=== PATIENT | female | born 1970 | race Caucasian/White ===

== ENCOUNTER 2016-09-20 12:26 | Emergency (ER) | payer MEDICAID ==
[~2016-09-20] VITALS: Ht 162.6 cm; Wt 67.0 kg
[~2016-09-20 12:26] MED LIST: ACET325T14 PO; CLIN300C93 PO; DIAZ5TAB4 PO; DOXY-168 PO; GABA-826 PO; HYDR-3240 PO; METH750T2 PO; MORP30TA3 PO; MORP30TA81 PO; OXYC-229 PO; OXYC-302 PO; OXYC1TAB7 PO; PREG100C PO; ZOLP10TA PO
[2016-09-20] MEDS ORDERED: OXYC-229 PO (12:42)
[2016-09-20] MEDS ORDERED: MORP30TA81 PO (12:42)
[2016-09-20] MEDS ORDERED: SODIUM CHLORIDE FLUSH 10ML SYR IVF ONE (13:00)
[2016-09-20] MEDS ORDERED: ONDANSETRON 2MG/ML, 2ML IVPush ONE (13:00)
[2016-09-20] MEDS ORDERED: SODIUM CHLORIDE 0.9% 1,000ML IVBOLUS ONE (13:00)
[2016-09-20] MEDS ORDERED: ONDANSETRON 2MG/ML, 2ML ONE (13:14)
[2016-09-20 13:41] LABS: BLOOD UREA NITROGEN 11 mg/dL (7-18)
[2016-09-20 13:46] LABS: IS PT STATUS REG ER OR PRE ER? YES
[2016-09-20 14:49] VITALS: BP 113/74
== END 2016-09-20 14:52 | disposition home or self-care (01) ==
LOC: ED 14:30
DX: S00.03XA Contusion of scalp, initial encounter (principal); R56.9 Unspecified convulsions; R11.0 Nausea; F17.210 Nicotine dependence, cigarettes, uncomplicated; X58.XXXA Exposure to other specified factors, initial encounter; Y93.89 Activity, other specified; Y92.89 Other specified places as the place of occurrence of the external cause; Y99.8 Other external cause status
CPT/HCPCS: 36415; 70450; 72125; 80048; 82040; 84484; 85025; 93005; 96361; 96374; 99285; J2405; J7030

== ENCOUNTER 2016-11-02 10:00 | Emergency (ER) | payer MEDICAID ==
[~2016-11-02] VITALS: Ht 162.6 cm; Wt 65.7 kg
[~2016-11-02 10:00] MED LIST changes: +CLIN300C8 PO; -CLIN300C93 PO; -DOXY-168 PO; +DOXY100T10 PO; -OXYC-229 PO; +OXYC-307 PO
[2016-11-02 10:15] VITALS: BP 125/84
== END 2016-11-02 12:55 | disposition home or self-care (01) ==
LOC: ED 12:09
DX: Z76.0 Encounter for issue of repeat prescription (principal); M54.2 Cervicalgia; G89.29 Other chronic pain; Z88.0 Allergy status to penicillin
CPT/HCPCS: 99283

== ENCOUNTER 2020-07-17 04:58 | Observation (INO) | payer MEDICAID ==
[~2020-07-17] VITALS: Ht 162.6 cm; Wt 72.4 kg
[~2020-07-17 04:58] MED LIST changes: -CLIN300C8 PO; +CLIN300C9 PO; -DOXY100T10 PO; +DOXY100T23 PO; +HYDR-2214 PO; -HYDR-3240 PO; +METH-640 PO; -METH750T2 PO; +MORP-30 PO; -MORP30TA3 PO; -OXYC-302 PO; -OXYC-307 PO; +OXYC-380 PO; +OXYC1TAB14 PO
--- NOTE | 2020-07-17 05:22 | NUR ---
PT REPORTS WALKING AROUND 4 WEEKS AGO WITH HER MOTHER AND STEPPING OFF A CURB AND FEELING THOUGH EVERYTHING DROPPED, PT REPORTS CLOTS AND 9 LARGE PADS A NIGHT. PT REPORTS YOU CAN SEE HER CERVIX. SINCE THAT EPISODE PT REPORTS PAIN. PT AMBULATED TO AND FROM RESTROOM WITH A SMOOTH AND STEADY GAIT, UA OBTAINED AND SENT TO LAB. PT PLACED ON SPO2/BP MONITORING AT THIS TIME. PROVIDED WARM BLANKETS FOR COMFORT. MIMI SAHM ERP AT BS FOR EVAL AND POC.
[2020-07-17 05:55] LABS: BASOPHILS % (AUTO) 1 % (0-1); EOSINOPHILS % (AUTO) 2 % (1-7); LYMPHOCYTES % (AUTO) 15 % (22-44); MEAN CORPUSCULAR HEMOGLOBIN 29.5 pg (27.0-34.8); MEAN CORPUSCULAR HGB CONC 34.4 g/dL (32.4-35.8); MEAN PLATELET VOLUME 8.4 fL (7.4-10.4); MONOCYTES % (AUTO) 5 % (2-9); NEUTROPHILS % (AUTO) 77 % (42-75); PLATELET COUNT 386 x10^3/uL (130-400); RED BLOOD COUNT 4.94 x10^6/uL (3.82-5.3); RED CELL DISTRIBUTION WIDTH 12.5 % (9.6-15.2)
[2020-07-17 05:59] LABS: MD NO
[2020-07-17 06:05] LABS: ALBUMIN 3.9 g/dL (3.4-5.0); ANION GAP 6 mmol/L (5-15); CHLORIDE 94 mmol/L (98-107)
[2020-07-17 06:10] LABS: MICROSCOPIC INDICATED
[2020-07-17 06:12] LABS: ALANINE AMINOTRANSFERASE 34 U/L (12-78); ALKALINE PHOSPHATASE 246 U/L (45-117); BILIRUBIN,TOTAL 0.3 mg/dL (0.2-1.0); CREATININE 0.98 mg/dL (0.55-1.02); TOTAL PROTEIN 8.4 g/dL (6.4-8.2)
[2020-07-17] MEDS ORDERED: SODIUM CHLORIDE FLUSH 10ML SYR IVF ONE (06:30)
[2020-07-17] MEDS ORDERED: SODIUM CHLORIDE 0.9% 1,000 ML IV ONE ×2 (06:30→07:30)
[2020-07-17] MEDS ORDERED: SODIUM CHLORIDE 0.9% 1,000ML IVBOLUS ONE ×2 (06:30→08:00)
--- NOTE | 2020-07-17 06:36 | NUR ---
PT RESTING ON GURNEY, REPORTING PAIN. ERP AWARE, AWAITING ORDERS. PT GLUCOSE ELEVATED IN THE 500S, 1L NS STARTED. PT RESTING ON GURNEY, NAD, WATCHING TV, NO OTHER CHANGES IN CONDITION, WCTM.
--- NOTE | 2020-07-17 06:41 | NUR ---
BEDSIDE REPORT TO TYREE WHITFIELD, PT CARE TRANSFERRED AT THIS TIME.
[2020-07-17] MEDS ORDERED: INSULIN SINGLE DOSE, ER ONE (06:49)
--- NOTE | 2020-07-17 06:55 | NUR ---
NOC RN VERIFIED WITH ERMD THAT BLOOD CULTURES NOT NEEDED BEFORE STARTING ROCEPHIN ORDER, ERMD CONFIRMED THAT BLOOD CULTURES NOT NEEDED AND TO PROCEED WITH ROCEPHIN. THIS RN STARTED ROCEPHIN. 15 MINUTES LATER ERMD ORDERED BLOOD CULTURES.
--- NOTE | 2020-07-17 06:55 | NUR ---
BEDSIDE REPORT RECEIVED FROM ROSEANN KIMBROUGH FOR TRANSFER OF PATIENT CARE.
[2020-07-17] MEDS ORDERED: MORPHINE SULFATE 4 MG/ML, 1ML ONE (06:57)
[2020-07-17] MEDS ORDERED: MORPHINE SULFATE 4 MG/ML, 1ML IVPush PRN (07:00)
[2020-07-17] MEDS ORDERED: CEFTRIAXONE 1,000 MG in DEXTROSE 5% 50 ML IVPB ONE (07:00)
[2020-07-17] MEDS ORDERED: INSULIN REGULAR 100 UNITS/ML, 3ML VIAL SQ-INSULIN SCH (07:00)
[2020-07-17] MEDS ORDERED: SODIUM CHLORIDE FLUSH 10ML SYR IVF PRN (07:30)
[2020-07-17 07:36] LABS: ACETONE, SERUM Small (20mg/dL) (Negative)
--- NOTE | 2020-07-17 07:44 | NUR ---
REPORT CALLED TO ROSEANN AUGUSTIN FOR TRANSFER OF PATIENT CARE.
[2020-07-17] MEDS ORDERED: SODIUM CHLORIDE 0.9% 1,000 ML IV SCH (08:00)
[2020-07-17] MEDS ORDERED: ACETAMINOPHEN 325 MG TABLET PO PRN (08:00)
[2020-07-17] MEDS ORDERED: ONDANSETRON 2MG/ML, 2ML IVPush PRN (08:00)
[2020-07-17] MEDS ORDERED: OMNIPAQUE 350 MG/ML, 100ML BOTTLE ONE (08:25)
--- NOTE | 2020-07-17 08:31 | NUR ---
PATIENT TRANSFERRED TO FLOOR IN STABLE CONDITION VIA GURNEY WITH QUARANTINE OFFICER, ALL PATIENT BELONGINGS TAKEN TO FLOOR WITH PATIENT.
[2020-07-17 09:10] VITALS: BP 128/74
[2020-07-17] MEDS: LIDODERM 5% PATCH TD PRN ×2 (09:27→09:52)
[2020-07-17] MEDS: INSULIN LISPRO 100 UNITS/ML, PEN SQ-INSULIN SCH ×2 (09:58→11:00)
[2020-07-17] MEDS ORDERED: NYSTATIN 500,000 UNITS/5 ML UDC PO SCH (11:00)
[2020-07-31] MEDS ORDERED: INSU100I11 SQ (09:27)
[2020-07-31] MEDS ORDERED: [UNRECOGNIZED DRUG - CODE] SQ (09:27)
[2020-07-31] MEDS ORDERED: BLOO1EAC91 (09:27)
[2020-07-31] MEDS ORDERED: INSU100I13 SQ-INSULIN (09:27)
[2020-07-31] MEDS ORDERED: LANC1EAC92 SQ (09:27)
== END 2020-07-17 12:53 | disposition left against medical advice (07) ==
LOC: ED 07:16 → INTOOBSV 07:29 → EDIP 07:29 → 3N 08:31
PROVIDERS: ADMIT Hospitalist; ATTEND Hospitalist
DX: E11.65 Type 2 diabetes mellitus with hyperglycemia (principal); E87.1 Hypo-osmolality and hyponatremia; E86.0 Dehydration; B37.9 Candidiasis, unspecified; N30.90 Cystitis, unspecified without hematuria; D25.1 Intramural leiomyoma of uterus; N81.4 Uterovaginal prolapse, unspecified; R93.89 Abnormal findings on diagnostic imaging of other specified body structures; R63.4 Abnormal weight loss; Z88.0 Allergy status to penicillin; Z79.899 Other long term (current) drug therapy; Z87.891 Personal history of nicotine dependence; Z79.4 Long term (current) use of insulin; Z98.1 Arthrodesis status
CPT/HCPCS: 36415; 74177; 76830; 80053; 81001; 82010; 82800; 82962; 83605; 83735; 84100; 84703; 85025; 87040; 87077; 87086; 87186; 96361; 96365; 96375; 99284; G0378; J0696; J1815; J2270; J2405; J7030; Q9967

== ENCOUNTER 2020-09-25 12:50 | Emergency (ER) | payer MEDICAID ==
[~2020-09-25] VITALS: Ht 162.6 cm; Wt 70.0 kg
[~2020-09-25 12:50] MED LIST changes: +BLOO1EAC91; +INSU100I11 SQ; +INSU100I13 SQ-INSULIN; +LANC1EAC92 SQ; +[UNRECOGNIZED DRUG - CODE] SQ
--- NOTE | 2020-09-25 13:28 | NUR ---
PT WITH SEIZURE X2 TODAY, HX OF SAME. PT STATES ONLT STARTED SEIZURE MEDICATIONS YESTERDAY. PT PULLED OUT IV STARTED TILE APPLICATOR BY EMS. NEW IV STARTED. PT WITH SEIZURE PRECAUTIONS IN PLACE. PLACED ON ALL MONITORS. DR. MARROQUIN AT BEDSIDE FOR ASSESSMENT. PT GIVEN JUICE AND WATER, OK PER ERMD FSBS IS 71. WILL FOLLOW ORDERS.
[2020-09-25] MEDS ORDERED: LORazepam 2 MG/ML, 1ML IVPush ONE (13:30)
[2020-09-25] MEDS ORDERED: LEVETIRACETAM 500 MG TABLET PO ONE (13:30)
[2020-09-25] MEDS ORDERED: SODIUM CHLORIDE FLUSH 10ML SYR IVF ONE (13:30)
[2020-09-25] MEDS ORDERED: LEVETIRACETAM 500 MG TABLET ONE (13:37)
[2020-09-25] MEDS ORDERED: LORazepam 2 MG/ML, 1ML ONE (13:39)
[2020-09-25 13:41] LABS: BASOPHILS % (AUTO) 1 % (0-1); EOSINOPHILS % (AUTO) 1 % (1-7); LYMPHOCYTES % (AUTO) 11 % (22-44); MEAN CORPUSCULAR HEMOGLOBIN 28.6 pg (27.0-34.8); MEAN CORPUSCULAR HGB CONC 33.3 g/dL (32.4-35.8); MEAN PLATELET VOLUME 7.4 fL (7.4-10.4); MONOCYTES % (AUTO) 5 % (2-9); NEUTROPHILS % (AUTO) 83 % (42-75); PLATELET COUNT 422 x10^3/uL (130-400); RED BLOOD COUNT 5.32 x10^6/uL (3.82-5.3)
--- NOTE | 2020-09-25 13:48 | NUR ---
PT MEDICATED PER ORDERS. PT REMAINS ON MONITORS, VSS. CONT TO MONITOR.
[2020-09-25 13:52] LABS: ANION GAP 5 mmol/L (5-15); CALCIUM 9.8 mg/dL (8.5-10.1); CHLORIDE 109 mmol/L (98-107)
[2020-09-25 13:56] LABS: ALANINE AMINOTRANSFERASE 34 U/L (12-78); ALKALINE PHOSPHATASE 124 U/L (45-117); BILIRUBIN,TOTAL 0.3 mg/dL (0.2-1.0); CREATININE 0.76 mg/dL (0.55-1.02); TOTAL PROTEIN 8.5 g/dL (6.4-8.2)
--- NOTE | 2020-09-25 15:20 | NUR ---
PT BACK FROM CT, AWAITING RESULTS. PT REMAINS ON MONITORS, VSS. NO DISTRESS, CONT TO MONITOR.
--- NOTE | 2020-09-25 15:37 | NUR ---
DR. MARROQUIN AT BEDSIDE FOR RE-ASSESSMENT.
--- NOTE | 2020-09-25 15:56 | NUR ---
TASK RN: PT RESTING ON CHIP. DILLON. VSS. PT AWARE OF NEED FOR UA. STATES SHE CANNOT PROVIDE UA SAMPLE AT THIS TIME.
[2020-09-25 16:33] LABS: MICROSCOPIC AUTO
--- NOTE | 2020-09-25 16:42 | NUR ---
URINE COLLECTED BY MALLORY WHITFIELD, SENT TO LAB. PT SLEEPING IN BED, NO DISTRESS. PT REMAINS ON MONITORS, VSS.
[2020-09-25 17:21] VITALS: BP 117/79
--- NOTE | 2020-09-25 17:39 | NUR ---
IV removed with tip intact. Patient given discharge instructions and prescriptions and they have confirmed that they understand the instructions. Patient ambulatory with steady gait. NAD, all questions answered appropriately, denies additional needs at this time. No personal belongings left in room after discharge.
== END 2020-09-25 17:40 | disposition home or self-care (01) ==
LOC: ED 13:34
DX: G40.309 Generalized idiopathic epilepsy and epileptic syndromes, not intractable, without status epilepticus (principal); N30.01 Acute cystitis with hematuria; D72.829 Elevated white blood cell count, unspecified; R79.1 Abnormal coagulation profile; R51.9 Headache, unspecified; M54.2 Cervicalgia; Z72.9 Problem related to lifestyle, unspecified; E11.65 Type 2 diabetes mellitus with hyperglycemia; G89.29 Other chronic pain; F17.200 Nicotine dependence, unspecified, uncomplicated; Z90.89 Acquired absence of other organs
CPT/HCPCS: 70450; 71045; 72125; 80053; 81001; 82962; 85025; 87086; 93005; 96374; 99285; J2060

== ENCOUNTER 2020-10-26 14:14 | Emergency (ER) | payer MEDICAID ==
[~2020-10-26] VITALS: Ht 162.6 cm; Wt 65.0 kg
[2020-10-26] MEDS ORDERED: DIPH,PERTUSS(ACELL),TET VAC/PF 0.5 ML IM-VACC ONE ×2 (15:00→15:02)
[2020-10-26] MEDS ORDERED: LORazepam 2 MG/ML, 1ML IVPush ONE (15:00)
[2020-10-26] MEDS ORDERED: LORazepam 2 MG/ML, 1ML ONE (15:02)
--- NOTE | 2020-10-26 15:14 | NUR ---
MEDS PER MAY. C COLLAR REMOVED BY . AWARE OF PENDING CT. DENIES ANY NEEDS. WILL CTM.
[2020-10-26 15:32] LABS: BASOPHILS % (AUTO) 2 % (0-1); EOSINOPHILS % (AUTO) 3 % (1-7); LYMPHOCYTES % (AUTO) 26 % (22-44); MEAN CORPUSCULAR HEMOGLOBIN 28.4 pg (27.0-34.8); MEAN CORPUSCULAR HGB CONC 33.8 g/dL (32.4-35.8); MEAN PLATELET VOLUME 7.6 fL (7.4-10.4); MONOCYTES % (AUTO) 8 % (2-9); NEUTROPHILS % (AUTO) 62 % (42-75); PLATELET COUNT 497 x10^3/uL (130-400); RED BLOOD COUNT 5.08 x10^6/uL (3.82-5.3); RED CELL DISTRIBUTION WIDTH 13.7 % (9.6-15.2)
[2020-10-26 15:42] LABS: ALANINE AMINOTRANSFERASE 43 U/L (12-78); ALBUMIN 3.8 g/dL (3.4-5.0); ANION GAP 5 mmol/L (5-15); CALCIUM 10.4 mg/dL (8.5-10.1); CHLORIDE 105 mmol/L (98-107); CREATININE 0.65 mg/dL (0.55-1.02)
[2020-10-26 15:44] LABS: ALKALINE PHOSPHATASE 141 U/L (45-117); BILIRUBIN,TOTAL 0.3 mg/dL (0.2-1.0); TOTAL PROTEIN 8.8 g/dL (6.4-8.2)
[2020-10-26] MEDS ORDERED: LIDOCAINE-MPF 1%, 5ML ONE (16:31)
--- NOTE | 2020-10-26 16:56 | NUR ---
PT WOUNDS IRRIGATED. PA AT BS TO SUTURE.
[2020-10-26] MEDS ORDERED: BACITRACIN ZINC OINT 500U/GM, 0.9 GM ONE (17:41)
--- NOTE | 2020-10-26 17:53 | NUR ---
WOUND CLEANED & DRESSED. AWARE OF PENDING NEURO CONSULT. WILL CTM.
--- NOTE | 2020-10-26 18:43 | NUR ---
NEURO SX AT TO DISCUSS PLAN OF CARE.
[2020-10-26 18:44] VITALS: BP 121/85
[2020-10-26] MEDS ORDERED: LEVETIRACETAM 500 MG TABLET ONE ×2 (18:55→18:57)
[2020-10-26] MEDS ORDERED: LEVETIRACETAM 500 MG TABLET PO ONE (19:00)
--- NOTE | 2020-10-26 19:05 | NUR ---
Patient/Caregiver given discharge instructions and they have confirmed that they understand the instructions. Patient ambulatory with steady gait. NAD, all questions answered appropriately, denies additional needs at this time. No personal belongings left in room after discharge. Pt placed C-collar back on herself and stated she wishes to wear it upon discharge due to head/neck pain.
== END 2020-10-26 19:41 | disposition home or self-care (01) ==
LOC: ED 17:52
DX: S02.85XB Fracture of orbit, unspecified, initial encounter for open fracture (principal); S01.81XA Laceration without foreign body of other part of head, initial encounter; S01.511A Laceration without foreign body of lip, initial encounter; X58.XXXA Exposure to other specified factors, initial encounter; G40.309 Generalized idiopathic epilepsy and epileptic syndromes, not intractable, without status epilepticus; E11.9 Type 2 diabetes mellitus without complications; M19.90 Unspecified osteoarthritis, unspecified site; Y93.89 Activity, other specified; Y92.89 Other specified places as the place of occurrence of the external cause; Y99.8 Other external cause status
CPT/HCPCS: 12013; 36415; 70450; 70486; 80053; 85025; 90471; 90715; 93005; 96374; 99285; J2060

== ENCOUNTER 2020-10-29 04:57 | Emergency (ER) | payer MEDICAID ==
[~2020-10-29] VITALS: Ht 162.6 cm; Wt 72.5 kg
[2020-10-29 04:59] VITALS: BP 143/78
--- NOTE | 2020-10-29 05:05 | NUR ---
PT STATES A FEW DAYS AGO SHE [place] FE[place] AND HAD A SEIZURE, PT EVALUATED AT THIS HOSPITAL AND WAS TOLD TO COME BACK TO THE ER IF THE PAIN CAME BACK SO PT IS HERE
[2020-10-29] MEDS ORDERED: OXYcodone IR 5MG TABLET ONE (05:21)
[2020-10-29] MEDS ORDERED: OXYcodone IR 5MG TABLET PO ONE (05:30)
--- NOTE | 2020-10-29 06:07 | NUR ---
PT LAYING IN BED, A/OX3, PT STATES, "IM FEELING BETTER", ALL NEEDS IN REACH, CALL LIGHT IN REACH, NAD AT THIS TIME
--- NOTE | 2020-10-29 07:36 | NUR ---
REVIEWED DC INSTRUCTIONS WITH PT, DISCUSSED WOUND CARE, UNDERSTANDING VERBALIZED. PAIN DECREASED TO 4/10. NO IV TO DC. PT LEFT AMB, GAIT STEADY
== END 2020-10-29 07:39 | disposition home or self-care (01) ==
LOC: ED 05:35
DX: S02.85XA Fracture of orbit, unspecified, initial encounter for closed fracture (principal); G40.909 Epilepsy, unspecified, not intractable, without status epilepticus; G89.29 Other chronic pain; E11.9 Type 2 diabetes mellitus without complications; M19.90 Unspecified osteoarthritis, unspecified site; Z90.89 Acquired absence of other organs; F17.200 Nicotine dependence, unspecified, uncomplicated; W18.30XA Fall on same level, unspecified, initial encounter; Y93.89 Activity, other specified; Y92.89 Other specified places as the place of occurrence of the external cause; Y99.8 Other external cause status
CPT/HCPCS: 99283

== ENCOUNTER 2020-11-07 10:06 | Emergency (ER) | payer MEDICAID ==
[~2020-11-07] VITALS: Ht 162.6 cm; Wt 72.0 kg
[~2020-11-07 10:06] MED LIST changes: -OXYC-380 PO; +OXYC-501 PO; +OXYC1TAB12 PO; -OXYC1TAB14 PO
[2020-11-07 10:11] VITALS: BP 130/83
== END 2020-11-07 13:24 | disposition home or self-care (01) ==
LOC: ED 13:22
DX: S06.0X0A Concussion without loss of consciousness, initial encounter (principal); S00.93XA Contusion of unspecified part of head, initial encounter; H53.132 Sudden visual loss, left eye; E11.65 Type 2 diabetes mellitus with hyperglycemia; M19.90 Unspecified osteoarthritis, unspecified site; G89.29 Other chronic pain; G40.909 Epilepsy, unspecified, not intractable, without status epilepticus; Z90.89 Acquired absence of other organs; F17.210 Nicotine dependence, cigarettes, uncomplicated; W18.30XA Fall on same level, unspecified, initial encounter; Y93.89 Activity, other specified; Y92.009 Unspecified place in unspecified non-institutional (private) residence as the place of occurrence of the external cause; Y99.8 Other external cause status
CPT/HCPCS: 70450; 70486; 99285; 99406